=== PATIENT | female | born 1965 ===

== ENCOUNTER 2018-03-01 09:54 | Emergency (ER) | payer BC ==
[2018-03-01 10:07] VITALS: BP 151/83
--- NOTE | 2018-03-01 10:15 | UC ---
Dental HPI - HPI Summary HPI Summary: 52-year-old woman comes in with chief complaint of dental pain. It's left lower. Started about 3 days ago. Needed Tylenol and ibuprofen which helps the pain. Now she has swelling in the gums on the side of her face. No fevers. Chewing makes the pain worse. - History of Current Complaint Chief Complaint: UCDentalProblem Stated Complaint: JAW PAIN Time Seen by Provider: 03/01/18 10:02 Hx Last Menstrual Period: IUD in place Pain Intensity: 6 - Allergies/Home Medications Allergies/Adverse Reactions: Allergies Allergy/AdvReac Type Severity Reaction Status Date / Time No Known Allergies Allergy Verified 03/01/18 10:07 Home Medications: Home Medications Acetaminophen [Extra Strength Non-Aspirin] 100 mg PO ONCE PRN 03/01/18 [History Confirmed 03/01/18] Ibuprofen 400 mg PO ONCE PRN 03/01/18 [History Confirmed 03/01/18] PMH/Surg Hx/FS Hx/Imm Hx Previously Healthy: Yes - Surgical History Surgical History: Yes Surgery Procedure, Year, and Place: umbilical hernia. - Family History Known Family History: Positive: Non-Contributory - Social History Alcohol Use: None Substance Use Type: None Smoking Status (MU): Never Smoked Tobacco Review of Systems All Other Systems Reviewed And Are Negative: Yes Constitutional: Positive: Negative Skin: Positive: Negative Eyes: Positive: Negative ENT: Positive: Dental Pain Respiratory: Positive: Negative Cardiovascular: Positive: Negative Gastrointestinal: Positive: Negative Motor: Positive: Negative Neurovascular: Positive: Negative Musculoskeletal: Positive: Negative Neurological: Positive: Negative Psychological: Positive: Negative Is Patient Immunocompromised?: No Physical Exam Triage Information Reviewed: Yes Appearance: Well-Appearing, No Pain Distress, Well-Nourished Vital Signs: Initial Vital Signs Temp 98.4 F 03/01/18 10:03 Pulse 103 03/01/18 10:03 Resp 18 03/01/18 10:03 BP 151/83 03/01/18 10:03 Pulse Ox 99 03/01/18 10:03 Vital Signs Reviewed: Yes Eye Exam: Normal Eyes: Positive: Conjunctiva Clear ENT: Positive: Pharynx normal. Negative: Nasal drainage Dental: Positive: Gross Decay/Caries @ - LEFT LOWER, Abscess @ - LEFT LOWER Neck exam: Normal Respiratory Exam: Normal Respiratory: Positive: Lungs clear, Normal breath sounds, No respiratory distress Cardiovascular: Positive: RRR Musculoskeletal Exam: Normal Musculoskeletal: Positive: Strength Intact, ROM Intact Neurological Exam: Normal Neurological: Positive: Alert, Muscle Tone Normal Psychological Exam: Normal Psychological: Positive: Age Appropriate Behavior Skin Exam: Normal Dental Complaint Course/Dx - Differential Dx/Diagnosis Provider Diagnosis: Dental abscess Discharge - Sign-Out/Discharge Documenting (check all that apply): Patient Departure All imaging exams completed and their final reports reviewed: No Studies - Discharge Plan Condition: Stable Disposition: HOME Prescriptions: Amoxicillin PO (*) [Amoxicillin 875 MG (*)] 875 mg PO BID #20 tab Patient Education Materials: Dental Abscess (ED) Referrals: [facility]FERRAL [Outside] Additional Instructions: FOLLOW UP WITH YOUR DENTIST. GET RECHECKED FOR ANY WORSENING OF YOUR CONDITION OR QUESTIONS OR CONCERNS. - Billing Disposition and Condition Condition: STABLE Disposition: Home
== END 2018-03-01 10:20 | disposition home or self-care (01) ==
LOC: UCEAST 09:54
DX: K04.7 Periapical abscess without sinus (principal)
CPT/HCPCS: 99202; G0463

== ENCOUNTER 2018-06-24 09:46 | Emergency (ER) | payer BC ==
[2018-06-24 10:08] VITALS: BP 182/94
--- NOTE | 2018-06-24 10:41 | UC ---
Knee Pain HPI - HPI Summary HPI Summary: 53-year-old female with no known injury to her left knee started hurting about 4 or 5 days ago. She complains of pain more over the patella. His been taking Motrin for pain without relief. - History of Current Complaint Chief Complaint: UCLowerExtremity Stated Complaint: L KNEE PAIN Time Seen by Provider: 06/24/18 10:36 Hx Obtained From: Patient Hx Last Menstrual Period: IUD in place ?: No Onset/Duration: Gradual Onset Severity Initially: Mild Severity Currently: Mild Pain Intensity: 6 Character: Dull, Aching Aggravating Factor(s): Movement, Weight Bearing Alleviating Factor(s): Rest Associated Signs And Symptoms: Positive: Swelling - Patient states that her knee is swollen however compared to her right knee does not appear swollen. Able to Bear Weight: Yes - Allergies/Home Medications Allergies/Adverse Reactions: Allergies Allergy/AdvReac Type Severity Reaction Status Date / Time No Known Allergies Allergy Verified 06/24/18 10:08 PMH/Surg Hx/FS Hx/Imm Hx Previously Healthy: Yes - Surgical History Surgical History: Yes Surgery Procedure, Year, and Place: umbilical hernia. - Family History Known Family History: Positive: Non-Contributory - Social History Alcohol Use: Occasionally Substance Use Type: None Smoking Status (MU): Never Smoked Tobacco Review of Systems All Other Systems Reviewed And Are Negative: Yes Motor: Positive: Negative Neurovascular: Positive: Negative Musculoskeletal: Positive: Other: - Patient points to anterior left knee for pain site. Neurological: Positive: Negative Is Patient Immunocompromised?: No Physical Exam Triage Information Reviewed: Yes Appearance: Well-Appearing, No Pain Distress, Well-Nourished, Obese Vital Signs: Initial Vital Signs Temp 97.5 F 06/24/18 10:04 Pulse 73 06/24/18 10:04 Resp 18 06/24/18 10:04 BP 182/94 06/24/18 10:04 Pulse Ox 100 06/24/18 10:04 Vital Signs Reviewed: Yes Musculoskeletal: Positive: Strength Intact, ROM Intact - Calf is non-tender, Other: - Good peripheral pulses neuro sensation capillary refill, patellar and knee ligaments are intact, no bruising erythema, deformity or swelling noted. Tender on palpation. Neurological: Positive: Alert, Muscle Tone Normal Psychological Exam: Normal Skin Exam: Normal Knee Pain Course/Dx - Course Course Of Treatment: Left knee x-ray:Report: Advanced osteophytosis. Moderately severe medial joint space narrowing and flattening of the articular surfaces. Small button osteophytes at the weightbearing portion of the lateral femoral condyle. Probable small joint effusion. Negative for fracture. Unremarkable soft tissue contours accounting for body habitus. IMPRESSION: #. Advanced osteoarthritis. Because of the patient's obesity a knee immobilizer will not fit. She is to continue to elevate as much as possible, limit ambulation as pain permits, continue Motrin 600 mg every 8 hours with food, apply warm moist compresses to the area 4-6 times a day. She is to follow-up with the orthopedist if no improvement by Thursday. No work until Thursday. - Differential Dx/Diagnosis Provider Diagnosis: Knee strain Discharge - Sign-Out/Discharge Documenting (check all that apply): Patient Departure All imaging exams completed and their final reports reviewed: Yes - Discharge Plan Condition: Fair Disposition: HOME Patient Education Materials: Knee Pain (ED) Forms: *Work Release Referrals: No Primary Care Phys,NOPCP [Primary Care Provider] - Mague Aldana MD [Medical Doctor] - Additional Instructions: Ambulate as pain permits, continue warm moist compresses to the sore area. Continue to take Motrin 600 mg every 8 hours with food. Definite follow-up with the orthopedist for further care. - Billing Disposition and Condition Condition: FAIR Disposition: Home
== END 2018-06-24 12:14 | disposition home or self-care (01) ==
LOC: UCEAST 09:46
DX: S86.912A Strain of unspecified muscle(s) and tendon(s) at lower leg level, left leg, initial encounter (principal); X58.XXXA Exposure to other specified factors, initial encounter; Y92.9 Unspecified place or not applicable; M17.12 Unilateral primary osteoarthritis, left knee
CPT/HCPCS: 99211; G0463